=== PATIENT | female | born 1945 | race Caucasian/White ===

== ENCOUNTER 2018-04-25 12:50 | Outpatient (CLI) | payer MEDICARE, BC ==
--- NOTE | 2018-04-25 14:38 | MRI ---
MRI LUMBAR SPINE: Date: 04-25-18 Provided Clinical History: Radiculopathy. FINDINGS: Five lumbar vertebral bodies are demonstrated on radiographs of 04-04-18. Lumbar alignment is unchanged with anterolisthesis of L4 on L5 redemonstrated. Vertebral body heights appear preserved. No focal c oncerning regional marrow signal abnormality. The conus medullaris is normal in signal and terminates at an appropriate level. The visualized extraspinal soft tissues appear unremarkable. L1-2: There is bilateral facet arthritis without significant central canal or foraminal narrowing. L2-3: Bilateral facet arthritis without significant central canal or foraminal narrowing apparent. L3-4: There is a broad based disc bulge and bilateral facet arthritis with mild/moderate central bridget l stenosis. No significant foraminal narrowing. L4-5: Pseudo-bulge and advanced bilateral facet arthritis. Severe central canal stenosis. No signific ant foraminal narrowing apparent. There is disc space height loss and endplate degenerative change. T here is signal alteration about the L4-5 disc space, most compatible with Modic type I change. L5-S1: There is bilateral facet arthritis without significant central canal or foraminal narrowing ap parent. IMPRESSION: Multilevel lumbar disc and facet degenerative changes producing areas of central canal stenosis as de scribed above, most severe at L4-5. POS: [facility]
== END 2018-04-25 12:51 | disposition home or self-care (01) ==
LOC: BICMRI 12:50
PROVIDERS: ATTEND Internal Medicine
DX: M51.16 Intervertebral disc disorders with radiculopathy, lumbar region (principal); M47.26 Other spondylosis with radiculopathy, lumbar region; M46.26 Osteomyelitis of vertebra, lumbar region; M53.3 Sacrococcygeal disorders, not elsewhere classified; M48.061 Spinal stenosis, lumbar region without neurogenic claudication; M47.27 Other spondylosis with radiculopathy, lumbosacral region
CPT/HCPCS: 72148

== ENCOUNTER 2018-07-05 11:18 | Outpatient (CLI) | payer MEDICARE, BC ==
[2018-07-05 12:56] LABS: INR-International Normal Ratio 0.9; PTT 25.2 SEC (22.9-36.1); Prothrombin Time 12.4 SEC (12.0-14.7)
== END 2018-07-05 11:19 | disposition home or self-care (01) ==
LOC: LABBT 11:18
PROVIDERS: ATTEND Surgery
DX: Z01.812 Encounter for preprocedural laboratory examination (principal); M48.061 Spinal stenosis, lumbar region without neurogenic claudication; M54.16 Radiculopathy, lumbar region
CPT/HCPCS: 85610; 85730

== ENCOUNTER 2018-07-11 05:56 | Day surgery (SDC) | payer MEDICARE, BC ==
[2018-07-05 11:44] VITALS: BMI 20.3
[2018-07-11] MEDS ORDERED: Sodium Chloride 0.9% 10 ML ONE (06:24)
[2018-07-11] MEDS ORDERED: Thrombin 5000 UNITS/5 ML VIAL ONE (06:24)
[2018-07-11] MEDS ORDERED: Bacitracin Zinc Ointment 30 gm TUBE ONE (06:24)
[2018-07-11] MEDS ORDERED: Scopolamine 1.5 mg/72 hour Patch ONE (06:48)
[2018-07-11] MEDS ORDERED: Famotidine/PF 20 mg/2ml Vial ONE (06:48)
[2018-07-11] MEDS ORDERED: CEFAZOLIN 2 GM/50 ML BAG ONE (06:58)
[2018-07-11] MEDS ORDERED: Midazolam HCl 2 mg/2 ml Vial ONE (07:05)
[2018-07-11] MEDS ORDERED: Fentanyl 100 MCG/2 ML VIAL ONE ×5 (07:29→11:00)
[2018-07-11] MEDS ORDERED: Ondansetron HCl/PF 4 MG/2 ML Vial IVP PRN (08:58)
[2018-07-11] MEDS ORDERED: Meperidine HCl/PF 25 MG/ML VIAL SLOW IVP PRN (08:58)
[2018-07-11] MEDS ORDERED: HYDROmorphone 2 MG/ML VIAL SLOW IVP PRN (08:58)
[2018-07-11] MEDS ORDERED: Promethazine HCl 25 MG/ML VIAL SLOW IVP PRN (08:58)
[2018-07-11] MEDS ORDERED: Morphine Sulfate 2 MG/ML SYRINGE SLOW IVP PRN (08:58)
[2018-07-11] MEDS ORDERED: PACU-Morphine 4MG/ML VIAL SLOW IVP PRN (08:58)
[2018-07-11] MEDS ORDERED: Promethazine HCl 25 MG/ML VIAL IM PRN ×2 (08:58→09:28)
[2018-07-11] MEDS ORDERED: Fleet Enema 133 ML BOT PR PRN (09:28)
[2018-07-11] MEDS ORDERED: tiZANidine HCl 4 MG TAB PO PRN (09:28)
[2018-07-11] MEDS ORDERED: HYDROcodone/Acetaminophen 7.5/325 mg Tablet PO PRN (09:28)
[2018-07-11] MEDS ORDERED: Bisacodyl 10 MG SUPP PR PRN (09:28)
[2018-07-11] MEDS ORDERED: Acetaminophen 325 MG TAB PO PRN (09:28)
[2018-07-11] MEDS ORDERED: Milk Of Magnesia 30 ML UDCUP PO PRN (09:28)
[2018-07-11] MEDS ORDERED: traMADol HCl 50 MG TAB PO PRN (09:28)
[2018-07-11] MEDS ORDERED: Mag-Al 1200 mg/1200 mg/30 ML UDCUP PO PRN (09:28)
[2018-07-11] MEDS ORDERED: CEFAZOLIN/Water 2 GM/20 ML SYRINGE SLOW IVP SCH (09:30)
[2018-07-11] MEDS ORDERED: ePHEDrine/0.9% NaCl/PF SYRINGE 50 mg/10 ml ONE (09:43)
[2018-07-11] MEDS ORDERED: Glycopyrrolate 0.2 MG/ML 5 ML SYRINGE ONE (09:43)
[2018-07-11] MEDS ORDERED: PROPOFOL 200 MG/20 ML VIAL ONE (09:43)
[2018-07-11] MEDS ORDERED: PHENYLEPHRINE-NS 100 MCG/ML 10 ML SYRINGE ONE (09:43)
[2018-07-11] MEDS ORDERED: Lidocaine 1% PF 5 ML VIAL ONE (09:43)
[2018-07-11] MEDS ORDERED: Ketorolac Tromethamine 30 MG/ML VIAL ONE (09:43)
[2018-07-11] MEDS ORDERED: Ondansetron PF 4 MG/2 ML Vial ONE (09:43)
[2018-07-11] MEDS ORDERED: Dexamethasone 20 MG/5 ML VIAL ONE (09:43)
[2018-07-11] MEDS ORDERED: Metoclopramide HCl 10 MG/2 ML VIAL ONE (09:43)
[2018-07-11] MEDS ORDERED: Esmolol 100 MG/10 ML VIAL ONE (09:43)
[2018-07-11] MEDS: Acetaminophen/Codeine 30-300mg Tablet PO PRN ×2 (12:56→19:06)
[2018-07-11] MEDS: Sodium Chloride 0.9% 1,000 ML IV SCH ×2 (12:58→20:36)
[2018-07-11] MEDS ORDERED: Morphine 4 MG/ML VIAL SLOW IVP PRN (13:00)
--- NOTE | 2018-07-11 13:01 | OP ---
DATE OF PROCEDURE: 07/11/2018 OPERATING ROOM: 11. WOUND CLASSIFICATION: Type 1 wound. SURG NURSE: Darien Gallegos PA-C. PREPROCEDURE DIAGNOSES: Left L3-L4 stenosis with left L4 radiculopathy, and L4-L5 spondylolisthesis with lumbar stenosis and bilateral low back and leg pain. POSTPROCEDURE DIAGNOSES: Left L3-L4 stenosis with left L4 radiculopathy, and L4-L5 spondylolisthesis with lumbar stenosis and bilateral low back and leg pain. PROCEDURES PERFORMED: 1. Left L3-L4 hemilaminotomy, foraminotomy for decompression, left L4 nerve root. 2. L4-L5 laminectomy, partial facetectomy, foraminotomy with in situ fusion. 3. Local bone autograft at time of same incision allograft L4-L5. DESCRIPTION OF PROCEDURE: After informed consent was obtained from the patient, the patient was brought to OR 11. Proper patient pause and identification were carried out. She was placed under excellent general endotracheal anesthesia and positioned prone on the OR table. All appropriate points were padded. We identified the L3, L4, and L5 dorsal spines and lamina, and this region was sterilely cleansed, prepared, and draped. After proper patient pause and identification and sterile cleansing, preparation, and draping, the L3, L4, and L5 segments were all exposed, in particular the left side of the L3-L4 segment. Bilateral L4-L5 spondylolisthesis was identified, and localization film confirmed our area of interest. We then performed left L3-L4 hemilaminotomy, foraminotomy with decompression of the left L4 nerve root. I did not think it was necessary to pursue diskectomy as we had excellent decompression at that point. We then turned our attention to L4-L5 laminectomy, partial facetectomy, and foraminotomies with excellent decompression of the common dural tube and bilateral nerve roots. We then turned our attention to the posterolateral mass fusion and arthrodesis occurred in the posterolateral masses, and we ended up at this point laying local bone autograft at time of same incision allograft in the posterolateral regions for in situ fusion. Copious irrigation occurred throughout as did maximizing hemostasis. The wound was then closed in anatomic layers following sprinkling of vancomycin powder. The patient was then emerged from anesthesia. Job ID: [id number]
[2018-07-11] MEDS: CEFAZOLIN 2 GM/50 ML-DEXTROSE 2 GM in Premix Bag 1 BAG IVPB SCH ×2 (14:44→23:58)
[2018-07-11] MEDS ORDERED: CEFAZOLIN 2 GM/50 ML-DEXTROSE 2 GM in Premix Bag 1 BAG IVPB SCH (15:00)
[2018-07-11] MEDS ORDERED: Calcium Carbonate 600 MG TAB PO SCH ×2 (21:00)
[2018-07-11] MEDS ORDERED: [UNRECOGNIZED DRUG - OTHER] PO SCH (21:00)
[2018-07-11] MEDS ORDERED: CALCIUM CARB GLUC PO SCH (21:00)
[2018-07-11] MEDS ORDERED: MAG OX GLUC PO SCH (21:00)
[2018-07-12] MEDS: Acetaminophen/Codeine 30-300mg Tablet PO PRN ×2 (05:16→10:22)
[2018-07-12 07:38] VITALS: BP 156/75; TEMP 98.1
[2018-07-12] MEDS ORDERED: Estrogens, Conjugated 0.3 MG TAB PO SCH (09:00)
[2018-07-12] MEDS ORDERED: Prevnar 13-Val Conj/PF 0.5 ML SYRINGE IM ONE (09:00)
--- NOTE | 2018-07-12 10:10 | PRG ---
DATE OF SERVICE: 07/12/2018 SUBJECTIVE: Ms. Arredondo is postoperative day #1 from lumbar decompression and in situ fusion. She is doing well with resolution of her leg pain. She has met criteria for dismissal. She will be dismissed. Job ID: [id number]
[2018-07-14] MEDS ORDERED: Ergocalciferol 1.25 MG(50,000 UNITS) CAP PO SCH (09:00)
== END 2018-07-12 10:50 | disposition home or self-care (01) ==
LOC: SDC 05:56 → SURG A 09:28 → SDC 07-12 10:50
PROVIDERS: ATTEND Surgery
PROC: 0SG0071 Fusion of Lumbar Vertebral Joint with Autologous Tissue Substitute, Posterior Approach, Posterior Column, Open Approach (ICD-10-PCS; principal; 2018-07-11)
PROC: 01NB0ZZ Release Lumbar Nerve, Open Approach (ICD-10-PCS; 2018-07-11)
DX: M43.16 Spondylolisthesis, lumbar region (principal); M48.061 Spinal stenosis, lumbar region without neurogenic claudication; M54.16 Radiculopathy, lumbar region; Z79.899 Other long term (current) drug therapy
CPT/HCPCS: 76001; 96374; J1100; J1885; J2001; J2250; J2405; J2704; J2765; J3010; J3370; J3490; S0028